=== PATIENT | male | born 1980 | race Caucasian/White ===

== ENCOUNTER 2021-03-15 06:23 | Emergency (ER) | payer SELFPAY ==
[~2021-03-15] VITALS: Ht 170.2 cm; Wt 160.0 kg
[2021-03-15] MEDS ORDERED: MORPHINE SULFATE 4 MG/ML CPJ (NOT FOR IM USE) IV STA (08:02)
[2021-03-15] MEDS ORDERED: ONDANSETRON HCL 4MG/2ML INJ IV STA (08:02)
[2021-03-15] MEDS ORDERED: SODIUM CHLORIDE 0.9% 1,000 ML IV ONE (08:15)
[2021-03-15 09:03] LABS: BASOPHILS % 0.3 % (0.0-2.0); HEMATOCRIT. 39.1 % (42.0-52.0); HEMOGLOBIN. 12.6 g/dL (14.0-18.0); LYMPHOCYTES % 7.4 % (20.0-50.0); MEAN CORPUSCULAR HEMOGLOBIN 23.3 pg (28.0-32.0); MEAN CORPUSCULAR VOLUME 72.4 fL (80.0-94.0); MEAN PLATELET VOLUME 7.9 fl (7.4-10.4); MONOCYTES % 3.2 % (2.0-8.0); NEUTROPHILS % 89.1 % (40.0-76.0); PLATELET 284 x1000/uL (130-400); RED CELL DISTRIBUTION WIDTH 14.7 % (11.6-14.6)
[2021-03-15 09:09] LABS: CHLORIDE 106 mEq/L (98-107)
[2021-03-15 09:11] LABS: INR 1.1; PROTHROMBIN TIME 11.3 sec (9.6-11.0)
[2021-03-15] MEDS ORDERED: HYDR25TA PO (10:10)
[2021-03-15 11:27] VITALS: BP 168/92
== END 2021-03-15 11:39 | disposition home or self-care (01) ==
LOC: ER 06:23
DX: R10.13 Epigastric pain (principal); I10 Essential (primary) hypertension; F17.210 Nicotine dependence, cigarettes, uncomplicated; Z71.6 Tobacco abuse counseling; Z87.19 Personal history of other diseases of the digestive system; Z90.49 Acquired absence of other specified parts of digestive tract
CPT/HCPCS: 36415; 80053; 83690; 85025; 85610; 96361; 96374; 96375; 99284; 99406; J2270; J2405; J7030; Z7610